=== PATIENT | female | born 1985 | race Asian ===

== ENCOUNTER 2019-03-19 17:26 | Emergency (ER) | payer OTHER ==
[~2019-03-19] VITALS: Ht 149.9 cm; Wt 67.6 kg
[2019-03-19 18:01] VITALS: BP 164/89; PULSE 102; RESP 18; Ht 149.9 cm; Wt 67.6 kg
--- NOTE | 2019-03-19 21:04 | ERD ---
ER Documentation Chief Complaint Chief Complaint SENT BY PMD FOR CONFIRM NO FHT. VAG. BLOODY SPOTTING, NO CLOTS. 7 WKS PREG HPI Patient is a 34-year-old female, G2, P1, approximately 7 weeks , presents the ER for concerns of needing ultrasound after no heart tones were detected in office. Patient was referred to the ER by Dr. Andrey Cerna, [facility]. She states she has had some spotting for the last 2 days. Patient denies any blood clot passage. Patient denies any dizziness or lightheadedness. Patient denies any fevers or chills. Patient denies any dysuria, urgency, urgency or hematuria. Patient states her last menstrual was on 01-09-19. Patient denies any chest pain or shortness of breath. ROS All systems reviewed and are negative except as per history of present illness. Medications Home Meds No Active Prescriptions or Reported Meds Allergies Allergies: Coded Allergies: No Known Allergy (Unverified , 09/12/11) PMhx/Soc Medical and Surgical Hx: pt denies Medical Hx, pt denies Surgical Hx History of Surgery: No Anesthesia Reaction: No Hx Neurological Disorder: No Hx Respiratory Disorders: No Hx Cardiac Disorders: No Hx Psychiatric Problems: No Hx Miscellaneous Medical Probl: No Hx Alcohol Use: No Hx Substance Use: No Hx Tobacco Use: No Smoking Status: Never smoker FmHx Family History: No diabetes Physical Exam Vitals Vital Signs Date Temp Pulse Resp B/P (MAP) Pulse Ox O2 O2 Flow FiO2 Time Delivery Rate 03/19/19 98.7 102 18 164/89 100 18:01 (114) Physical Exam GENERAL: Well-developed, well-nourished female. Appears in no acute distress. HEAD: Normocephalic, atraumatic. EYES: Pupils are equally reactive bilaterally. EOMs grossly intact. No conjunctival erythema. ENT: Moist mucous membranes. No uvula deviation. No kissing tonsils. NECK: Supple. No meningismus. Normal range of motion of the neck. LUNG: Clear to auscultation bilaterally. No rhonchi, wheezing, rales or coarse breath sounds. HEART: Regular rate and rhythm. No murmurs, rubs or gallops. ABDOMEN: No scars, ecchymosis or rashes noted. Soft, nontender, and nondistended. Positive bowel sounds in all four quadrants. No rebound tenderness, no guarding. (-) McBurney's point tenderness. No CVA tenderness. EXTREMITIES: Equal pulses bilaterally. No peripheral clubbing, cyanosis or edema. No unilateral leg swelling. NEUROLOGIC: Alert and oriented. Moving all four extremities without any difficulty. Normal speech. Steady gait. SKIN: Normal color. Warm and dry. No rashes or lesions. Result Diagram: 03/19/191922 Results 24 hrs Laboratory Tests Test 03/19/19 19:23 03/19/19 19:24 White Blood Count 10.7 10^3/ul Red Blood Count 4.94 10^6/ul Hemoglobin 13.0 g/dl Hematocrit 41.8 % Mean Corpuscular Volume 84.6 fl Mean Corpuscular Hemoglobin 26.3 pg Mean Corpuscular Hemoglobin Concent 31.1 g/dl Red Cell Distribution Width 13.2 % Platelet Count 349 10^3/UL Mean Platelet Volume 9.7 fl Immature Granulocytes % 0.700 % Neutrophils % 67.7 % Lymphocytes % 25.8 % Monocytes % 4.3 % Eosinophils % 1.0 % Basophils % 0.5 % Nucleated Red Blood Cells % 0.0 /100WBC Immature Granulocytes # 0.070 10^3/ul Neutrophils # 7.2 10^3/ul Lymphocytes # 2.8 10^3/ul Monocytes # 0.5 10^3/ul Eosinophils # 0.1 10^3/ul Basophils # 0.1 10^3/ul Nucleated Red Blood Cells # 0.0 10^3/ul Beta HCG, Quantitative 3937.6 mIU/ml Urine Color STRAW Urine Clarity CLEAR Urine pH 6.0 Urine Specific [place] 1.009 Urine Ketones TRACE mg/dL Urine Nitrite NEGATIVE mg/dL Urine Bilirubin NEGATIVE mg/dL Urine Urobilinogen NEGATIVE mg/dL Urine Leukocyte Esterase NEGATIVE [place]/ul Urine Microscopic RBC 1 /HPF Urine Microscopic WBC 4 /HPF Urine Squamous Epithelial Cells FEW /HPF Urine Bacteria FEW /HPF Urine Hemoglobin 3+ mg/dL Urine Glucose NEGATIVE mg/dL Urine Total Protein NEGATIVE mg/dl Procedures/MDM ED COURSE: The patient was stable throughout ED course. I kept the patient and/or family informed of laboratory and diagnostic imaging results throughout the ED course. DIAGNOSTIC IMAGING: Read by radiologist. DIAGNOSTIC IMAGING REPORT Patient: BREEZY AGUIRRE : 1985 Age: 34 Sex: F MR #: [id number] DOS: 03/19/19 1824 Ordering MD: AMAYA LONDON PA-C Location: [facility] Room/Bed: PROCEDURE: US OB. CLINICAL INDICATION: First trimester . Question demise. TECHNIQUE: Transabdominal views of the pelvis are available for review. COMPARISON: No prior studies are available for comparison. FINDINGS: The uterus is anteverted. It is of normal contour and echogenicity. Noted is a single intrauterine gestation sac. Mean sac diameter measures 1.65 cm in diameter. There is a pole with no heartbeat. [place]-rump length measures 13 millimeters corresponding to a gestational age of 7 weeks 4 days by ultrasound criteria. There is no subchorionic hemorrhage. The right ovary is not visualized. The left ovary measures 3.4 x 1.7 x 2.2 centimeter. No adnexal masses seen. There is normal arterial flow to the left ovary on color-flow Doppler imaging. There is no free fluid in the pelvis. No solid pelvic mass is present. IMPRESSION: Single intrauterine gestation of approximate gestational age 7 weeks 4 days by ultrasound criteria . No heartbeat. Rule out demise. Nonvisualization right ovary. .Venkatesh Taylor MD, MD Date Time Electronically viewed and signed by .Venkatesh Taylor MD, MD on 03/19/2019 20:24 .A/ CC: AMAYA LONDON PA-C [phone] PROCEDURES: None. MEDICAL DECISION MAKING: This is a 34-year-old female, G2, P1, presents the ER for concerns of no heart tones detected on ultrasound at [facility] office. Vital signs were reviewed. Patient was afebrile. Patient was hemodynamically stable. Patient's pain hCG is 3937. UA did show 3+ hemoglobin. CBC showed no evidence of systemic infection or severe anemia. Patient's blood type was noted to be positive, no indication for RhoGam at this time. Pelvic ultrasound did show concerns of demise. See formal report above. Patient was advised to follow-up with her [facility] for further management of her symptoms. Patient may need a D&C on an outpatient basis. Low suspicion for ectopic , ruptured ectopic , molar , subchorionic hematoma, spontaneous , placental abruption, placental previa, vasa previa, uterine rupture, anembyronic . DISCHARGE: At this time, patient is stable for discharge and outpatient management. I had a conversation at length with the patient about the concerns of vaginal bleeding during the 1st trimester of . Patient and/or family understands that her vaginal bleeding can be a normal finding or a sign of miscarriage. I have instructed the patient to follow-up with her OBGYN in 1-2 days for further monitoring including a repeat b-HCG level. I have instructed the patient to p romptly return to the ER at any time for any new or worsening symptoms including increased pain, nausea, vomiting, continued bleeding, weakness, syncope or fever. The patient and/or family expressed understanding of and agreement with this plan. All questions were answered. Home care instructions were provided. Disclaimer: Inadvertent spelling and grammatical errors are likely due to EHR/dictation software use and do not reflect on the overall quality of patient care. Also, please note that the electronic time recorded on this note does not necessarily reflect the actual time of the patient encounter. Departure Diagnosis: Primary Impression: demise Additional Impression: Vaginal bleeding in patient at less than 20 weeks gestation Condition: Fair Patient Instructions: Miscarriage, Spontaneous (Completed) Referrals: [facility] YOU HAVE RECEIVED A MEDICAL SCREENING EXAM AND THE RESULTS INDICATE THAT YOU DO NOT HAVE A CONDITION THAT REQUIRES URGENT TREATMENT IN THE EMERGENCY DEPARTMENT. FURTHER EVALUATION AND TREATMENT OF YOUR CONDITION CAN WAIT UNTIL YOU ARE SEEN IN YOUR DOCTORS OFFICE WITHIN THE NEXT 1-2 DAYS. IT IS YOUR RESPONSIBILITY TO MAKE AN APPOINTMENT FOR FOLOW-UP CARE. IF YOU HAVE A PRIMARY DOCTOR --you should call your primary doctor and schedule an appointment IF YOU DO NOT HAVE A PRIMARY DOCTOR YOU CAN CALL OUR PHYSICIAN REFERRAL HOTLINE AT IF YOU CAN NOT AFFORD TO SEE A PHYSICIAN YOU CAN CHOSE FROM THE FOLLOWING [facility] CLINICS [facility] [address] [facility]. [facility] [address] [facility] [address] [facility] [address] [facility] [address] [facility]. [facility]. [address] [facility]. [facility] YOU HAVE RECEIVED A MEDICAL SCREENING EXAM AND THE RESULTS INDICATE THAT YOU DO NOT HAVE A CONDITION THAT REQUIRES URGENT TREATMENT IN THE EMERGENCY DEPARTMENT. FURTHER EVALUATION AND TREATMENT OF YOUR CONDITION CAN WAIT UNTIL YOU ARE SEEN IN YOUR DOCTORS OFFICE WITHIN THE NEXT 1-2 DAYS. IT IS YOUR RESPONSIBILITY TO MAKE AN APPOINTMENT FOR FOLOW-UP CARE. IF YOU HAVE A PRIMARY DOCTOR --you should call your primary doctor and schedule and appointment IF YOU DO NOT HAVE A PRIMARY DOCTOR YOU CAN CALL OUR PHYSICIAN REFERRAL HOTLINE AT . IF YOU CAN NOT AFFORD TO SEE A PHYSICIAN YOU CAN CHOSE FROM THE FOLLOWING [facility] INSTITUTIONS: [facility] [address] [place] [address] [facility] [address] [place] [address] [facility] + [facility] [address] [place] [address] Additional Instructions: Follow-up with Dr. Balderas. Take ultrasound findings and blood work to him. Call your primary care doctor TOMORROW for an appointment during the next 1-2 days.See the doctor sooner or return here if your condition worsens before your appointment time. AMAYA LONDON PA-C Mar 19, 2019 21:04
== END 2019-03-19 21:03 | disposition home or self-care (01) ==
LOC: FTE 17:26
DX: O02.1 Missed abortion (principal)
CPT/HCPCS: 36415; 76801; 76817; 81001; 84702; 85025; 86900; 86901